=== PATIENT | female | born 1955 | race Caucasian/White ===

== ENCOUNTER → 2025-08-30 12:04 | Outpatient (REF) | payer MEDICARE, MEDICAID, SELFPAY | LOC: DHSLP 12:04 | PROVIDERS: ATTENDING PHYSICIAN Internal Medicine Critical Care Medicine; FAMILY PHYSICIAN Physician Assistant Medical | DX: G47.30 Sleep apnea, unspecified (principal); R06.83 Snoring | CPT/HCPCS: 95810 ==

== ENCOUNTER → 2025-08-31 14:02 | Outpatient (REF) | payer MEDICARE, MEDICAID, SELFPAY | LOC: DHSLP 14:02 | PROVIDERS: ATTENDING PHYSICIAN Internal Medicine Critical Care Medicine; FAMILY PHYSICIAN Physician Assistant Medical | DX: G47.33 Obstructive sleep apnea (adult) (pediatric) (principal); G47.19 Other hypersomnia | CPT/HCPCS: 95805 ==